=== PATIENT | male | born 1995 | race Caucasian/White ===

== ENCOUNTER 2017-11-24 07:01 | Day surgery (SDC) | payer BC, OTHER, SELFPAY ==
[2017-11-24 07:28] VITALS: BP 131/81; PULSE 67; RESP 17; TEMP 36.7; O2SAT 98; BMI 22.3
--- NOTE | 2017-11-24 08:16 | OP.PN_ITS ---
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
--- NOTE | 2017-11-24 08:18 | DCINST_ITS ---
Discharge Activity: Return to Normal Activity, May not drive while taking narcotic pain medications., May Shower, - - Sling 24 7 except for shower. May shower in (days): 2 May resume sexual activity in: 8 weeks Ice area for (Minutes): 20 Weight Bearing Status: No weight bearing Additional Activity Instructions:: May flex and extend the elbow ad lauren. May perform pendulum exercises 3 times per day. Sling otherwise 24 7. Call your doctor if your incision/area has: Continuous Slow Oozing, Sudden Increased Bleeding, Increased Pain/ Swelling, Increased Redness, Foul Smelling Discharge, Swelling at the incision site Call your doctor if you observe: Fever of 101 or Higher, Coldness, Increased Pain, Numbness or Tingling, Change in Color, Inability to urinate, Inability to have a bowel movement, Using more than one pad per hour, Shortness of breath, Dizziness, Fainting spells, Swelling in the ankles, Chest pain, Prolonged hiccoughing, Increased palpitations (irregular heartbeat), Calf discomfort, Uncontrolled pain Suture Line Care: Avoid Pulling/Pushing, Avoid Pinching/Bending Change Dressing in (Days):: 2 Remove Dressing in (days):: 2 Cleanse incision/area with: Soap & Water Additional Dressing/Incision Instructions:: Remove dressing prior to shower on Tuesday. Replace dressing with simple Band-Aids as long as there is drainage. Allergies/Adverse Reactions: Allergies No Known Allergies Allergy (Verified 11/22/17 11:07) Medications to take at Discharge Lansoprazole [Prevacid] 30 mg PO DAILY 11/22/17 Methylphenidate HCl [Concerta] 54 mg PO DAILY 11/22/17 Docusate Sodium [Colace] 100 mg PO BID PRN PRN #10 cap 11/24/17 Hydrocodone Bitart/Apap 5-325 [[place] 5/325] 1 - 2 tablet PO Q6H PRN PRN #60 tablet 11/24/17 proMETHazine tablet [Phenergan] 25 mg PO Q4H PRN PRN #10 tab 11/24/17 The following prescriptions were given: proMETHazine tablet [Phenergan] 25 mg PO Q4H PRN PRN #10 tab PRN Reason: Nausea Hydrocodone Bitart/Apap 5-325 [[place] 5/325] 1 - 2 tablet PO Q6H PRN PRN #60 tablet PRN Reason: Pain Docusate Sodium [Colace] 100 mg PO BID PRN PRN #10 cap PRN Reason: Constipation Primary Care Physician: Leni Stafford NP-C [Primary Care Provider] - Please Follow Up With: Agustin Rivera DO When: call [facility] for appt for 2 weeks Proposed Discharge Date: 11/24/17
[2017-11-24] MEDS: Cefazolin 2 GM in 0.9% Normal Saline 100 ML IV (08:40)
--- NOTE | 2017-11-24 10:02 | PCM.OPRPT ---
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 Patient had an MRI that showed a type II SLAP lesion and anterior labral tear. Patient had a positive apprehension relocation. Having failed conservative measures patient elected for operative intervention. Patient was met in the holding area the left upper extremity was marked and identified by the orthopedic surgeon. Patient was taken to the operating room in satisfactory condition where a timeout to place to identify patient operative procedure and limb. Patient received 2 g of Ancef. Patient underwent a successful intubation he was then placed into the right lateral decubitus position with a well-padded axillary roll. Down leg was protected. He was then prepped and draped in usual fashion. Patient was placed into the star sleeve from [employer] and with 5 pounds of traction through the lateral balloon. Landmarks were identified to include the posterior portal. Incision was made and we entered into the intra-articular space. Upon identification of the anatomic triangle and anterior inferior working portal was established. Diagnostic scope should the patient have a type II SLAP lesion. His biceps root was mildly unstable. The biceps was stable upon outlet. Patient had a normal subscapularis. The anterior central and posterior rotator cuffs were normal. Patient had minimal sulcus. Patient had no jimmy the posterior inferior posterior superior labrum. He had a positive drive-through sign. Patient had a blunted anterior inferior labrum. His IGH L was otherwise intact. The patient did show dissociation of his labrum from the on the 9 o'clock position to the biceps root consistent with somewhat of a degree of a Jimi complex. At that point time in the anterior superior working portals established and we decorticated the superior rim of the glenoid down to bleeding bone using standard technique. The frayed labral tissue was debrided using standard technique. Then placed 1 double loaded anchor at the 1130 position and placed a simple stitch through the labrum superior to the biceps root and placed a secondary anchor at the inferior margin of the biceps root using standard technique. With good stabilization of the labral tissue which also subsequently superior eyes the portion of the IGH L. At that point time we then turned our attention to the anterior inferior capsule. I elected to place one anchor at the 7:00 to 730 position and perform a capsulorrhaphy stitch. The capsule was gently rasped to create some stimulated bleeding. We then placed 2 simple stitches at the 8 o'clock position in the 830 position. This improved the overall labral bumper effect. This improved the overall tightening of the IGH L. We are cognizant not to capture the middle glenohumeral ligament. Upon completion of the capsulorrhaphy stitches through the anchor the patient had minimal drive-through sign. The patient appeared to be centered on the glenoid on the 50 yard line view. At that point time to recheck stability and range of motion traction was let off the arm the arm was removed from the star sleeve and the patient had a 1+ 1+ load shift no sulcus at roughly 45? of external rotation at the side and 8080 in terms of abduction external rotation positioning. At that point time the portal sites were closed with 3-0 nylon using simple suture technique. He was then dressed with Xeroform 4 x 4's ABDs and Medipore tape and placed to an UltraSling. I was scrubbed and available time during our procedure. We had no drains or complications. Implants included 2 double loaded 3 mm bio composite anchors from [employer]. She will be discharged home. He will be in the sling for 4-6 weeks depending on stiffness of the shoulder. Any major issues please contact me. undercoat sprayer: Leola Vogel Type of Anesthesia:: General Specimen's removed: None Estimated Blood Loss (mL): 50 Grafts/Implants Used: 2 double loaded 3 mm bio composite suture anchors [place] - Complications None - Admit VTE Documentation VTE Present on Admission: No VTE Mechan Device Prophylaxis: SCD's, Knee High JOVON Hose VTE Pharm Prophylaxis ordered?: No Reason prophylaxis not ordered:: Treatment Not Indicated
[2017-11-24 10:21] VITALS: BP 131/81; BP 132/76; PULSE 94; RESP 18; TEMP 36.6; O2SAT 94
[2017-11-24] MEDS: Ketorolac 30 MG/ML Syringe IV (10:28)
[2017-11-24 10:30] VITALS: BP 130/80; BP 131/81; PULSE 80; RESP 18; O2SAT 95
[2017-11-24 10:48] VITALS: BP 126/77; BP 131/81; PULSE 88; RESP 18; TEMP 36.6; O2SAT 97
[2017-11-24] MEDS: HYDROcodone Bitartrate/Apap 5/325 Tablet PO (11:35)
[2017-11-24 12:47] VITALS: BP 131/81
== END 2017-11-24 12:48 | disposition home or self-care (01) ==
LOC: SDC 07:03 → AC 07:04
PROVIDERS: Family Provider Nurse Practitioner Family; PCP Nurse Practitioner Family; Visit Provider Orthopaedic Surgery
PROC: (CPT 29806; principal; 2017-11-24 08:20)
DX: S43.432A Superior glenoid labrum lesion of left shoulder, initial encounter (principal); X58.XXXA Exposure to other specified factors, initial encounter; M25.312 Other instability, left shoulder; K21.9 Gastro-esophageal reflux disease without esophagitis; Z87.891 Personal history of nicotine dependence; Z79.899 Other long term (current) drug therapy
CPT/HCPCS: 29806; 29807; 64415; C1713; J7120